=== PATIENT | female | born 1985 | race Caucasian/White ===

== ENCOUNTER 2018-01-30 00:19 | Inpatient (IN) | END 2018-01-31 15:03 | disposition home or self-care (01) | DRG 872 ==

== ENCOUNTER 2018-07-18 18:11 | Emergency (ER) | payer OTHER ==
[~2018-07-18] VITALS: Ht 162.6 cm; Wt 73.8 kg
[~2018-07-18 18:11] MED LIST: CIPR500T4 PO; LACT1CAP57 PO
[2018-07-18 18:17] VITALS: BP 139/82; PULSE 112; RESP 20; Ht 162.6 cm; Wt 73.8 kg
--- NOTE | 2018-07-18 19:30 | ERD ---
ER Documentation Chief Complaint Chief Complaint VOMITITNG HPI 34-year-old female, previously healthy, presents emergency department, complaining of 2 days with nausea, vomiting and diarrhea, family members with similar symptoms at home. She denies fever, no chills, no history of recent traveling, no suspicious food. ROS All systems reviewed and are negative except as per history of present illness. Medications Home Meds Active Scripts Ondansetron Hcl* (Zofran*) 4 Mg Tablet, 4 MG PO Q8H PRN for NAUSEA AND/OR VOM ITING, #15 TAB Prov:RAMANDEEP ZHONG MD 07/18/18 Ranitidine Hcl* (Zantac*) 150 Mg Tablet, 150 MG PO BID PRN for EPIGASTRIC PAIN, #20 TAB Prov:RAMANDEEP ZHONG MD 07/18/18 Lactobacillus Rhamnosus* (Culturelle*) 1 Each Cap.sprink, 1 CAP PO BID, #14 CAP Prov:MAMTA HERNANDEZ. 01/31/18 Ciprofloxacin Hcl* (Ciprofloxacin Hcl*) 500 Mg Tablet, 500 MG PO BID, #12 TAB Prov:MAMTA HERNANDEZ 01/31/18 Allergies Allergies: Coded Allergies: No Known Allergy (Unverified , 07/18/18) PMhx/Soc Medical and Surgical Hx: pt denies Medical Hx, pt denies Surgical Hx History of Surgery: No Anesthesia Reaction: No Hx Neurological Disorder: No Hx Respiratory Disorders: No Hx Cardiac Disorders: No Hx Psychiatric Problems: No Hx Miscellaneous Medical Probl: No Hx Alcohol Use: Yes (OCCASIONAL) Hx Substance Use: No Hx Tobacco Use: No FmHx Family History: No diabetes, No coronary disease Physical Exam Vitals Vital Signs Date Temp Pulse Resp B/P (MAP) Pulse Ox O2 O2 Flow FiO2 Time Delivery Rate 07/18/18 99.9 112 20 139/82 99 18:17 (101) Physical Exam Const: No acute distress Head: Atraumatic Eyes: Normal Conjunctiva ENT: Normal External Ears, Nose and Mouth. Neck: Full range of motion. No meningismus. Resp: Clear to auscultation bilaterally Cardio: Regular rate and rhythm, no murmurs Abd: Soft, non tender, non distended. Normal bowel sounds Skin: No petechiae or rashes Back: No midline or flank tenderness Ext: No cyanosis, or edema Neur: Awake and alert Psych: Normal Mood and Affect Results 24 hrs Laboratory Tests Test 07/18/18 20:03 Bedside Urine pH (LAB) 6.5 Bedside Urine Protein (LAB) Negative Bedside Urine Glucose (UA) Negative Bedside Urine Ketones (LAB) Negative Bedside Urine Blood Negative Bedside Urine Nitrite (LAB) Negative Bedside Urine Leukocyte Esterase (L Negative POC Beta HCG, Qualitative BORDERLINE Current Medications Medications Dose Sig/Kal Start Time Status Last (Trade) Ordered Route PRN Stop Time Admin Dose Reason Admin Ondansetron 4 mg ONCE STAT 07/18/18 DC 07/18/18 HCl (Zofran ODT 19:59 07/18/18 20:06 Odt) 20:04 Procedures/MDM Physical exam unremarkable, patient in no distress, hydrated, adequate oral intake, abdomen, soft, nontender, no peritoneal signs. Differential diagnosis include but not limited to: gastrointestinal infection bacterial/viral, UTI, appendicitis, colitis, food poisoning, food intolerance. Low suspicion for acute abdomen Physical examination and clinical presentation consistent most likely with viral gastroenteritis. During the ED course the patient remained stable, overall improvement of the symptoms after receiving treatment in the emergency department with Zofran. Clinical impression discussed with the patient who agrees with management. The patient is stable to be discharged home, Some side effects of prescribed medications (headache, rash, nausea, vomiting, diarrhea, interactions with other medications) were reviewed. The patient requires a follow up with the primary care provider in the next 48h. If symptoms persist, worsen or new symptoms develop, then patient should return to the ED immediately. Disclaimer: Inadvertent spelling and grammatical errors are likely due to EHR/dictation software use and do not reflect on the overall quality of patient care. Also, please note that the electronic time recorded on this note does not necessarily reflect the actual time of the patient encounter. Departure Diagnosis: Primary Impression: Acute gastroenteritis Condition: Stable Additional Instructions: Muchas jovan por [facility] para porras servicio. Esperamos que en porras visita a la jakob de emergencia porras problema medico haya sido solucionado y que se sienta mucho mejor. Para estar seguros que porras mejoria sigue en proceso, le pedimos el favor de hacer fabien kathleen de seguimiento medico con porras doctor primario en los proximos 2-4 nguyen. Lleve con usted estos documentos y las medicinas recetadas. Si jv sintomas empeoran, NO SE ESPERE, por favor regrese a jakob de emergencia INMEDIATAMENTE. En carly que usted no tenga un mdico de atencin primaria: Llame al mdico o clnica comunitaria de referencia que aparece abajo dagmar la s horas de consultorio para hacer fabien kathleen para que le vean. CLINICAS: [facility] [phone] [facility] [phone] [facility] [phone] [facility]. [facility] [phone] [place] [id number] [phone] [facility] [address]. [phone] RAMANDEEP ELIZONDO MD July 18, 2018 19:30
[2018-07-18] MEDS ORDERED: ONDANSETRON (ODT) 4 MG TAB ODT STA (19:59)
[2018-07-18] MEDS ORDERED: RANI150T35 PO (20:17)
[2018-07-18] MEDS ORDERED: ONDA4TAB8 PO (20:17)
== END 2018-07-18 20:36 | disposition home or self-care (01) ==
LOC: FTE 18:11
DX: K52.9 Noninfective gastroenteritis and colitis, unspecified (principal)
CPT/HCPCS: 81003; 81025; Z7502; Z7610; 99283